=== PATIENT | female | born 1990 ===

== ENCOUNTER 2018-11-13 01:28 | Emergency (ER) | payer SELFPAY ==
[2018-11-13 01:37] VITALS: BP 101/60
--- NOTE | 2018-11-13 02:42 | Emergency Department Report ---
- General Chief complaint: Skin/Abscess/Foreign Body Stated complaint: BUG IN EAR Time Seen by Provider: 11/13/18 02:37 Source: patient Mode of arrival: Ambulatory Limitations: No Limitations - History of Present Illness Initial comments: 28-year-old -[place] female presents to the emergency room for concern of a bug in right ear. 4 hours. Patient states it is not painful but irritating. Patient denies any past medical history. MD complaint: foreign body Onset/Timin -: hour(s) Tetanus Up to Date: no Consistency: constant Associated symptoms: denies other symptoms Treatments Prior to Arrival: none - Related Data Allergies Allergy/AdvReac Type Severity Reaction Status Date / Time No Known Allergies Allergy Unverified 11/13/18 01:37 Abscess Boil HPI - HPI Chief Complaint: Skin/Abscess/Foreign Body Stated Complaint: BUG IN EAR Time Seen by Provider: 11/13/18 02:37 Allergies/Adverse Reactions: Allergies Allergy/AdvReac Type Severity Reaction Status Date / Time No Known Allergies Allergy Unverified 11/13/18 01:37 ED Review of Systems ROS: Stated complaint: BUG IN EAR Other details as noted in HPI Comment: All other systems reviewed and negative ED Past Medical Hx - Past Medical History Previous Medical History?: No - Surgical History Past Surgical History?: No - Social History Smoking Status: Former Smoker Substance Use Type: Alcohol, Marijuana ED Physical Exam - General Limitations: No Limitations General appearance: alert, in no apparent distress - Head Head exam: Present: atraumatic, normocephalic - Eye Eye exam: Present: normal appearance - ENT ENT exam: Present: mucous membranes moist, TM's normal bilaterally - Expanded ENT Exam Expanded TM/Canal exam: Foreign Body: Right TM (insect) - Neurological Exam Neurological exam: Present: alert, oriented X3, normal gait - Psychiatric Psychiatric exam: Present: normal affect, normal mood - Skin Skin exam: Present: warm, dry, intact, normal color. Absent: rash ED Course Vital Signs 11/13/18 01:36 Temperature 97.9 F Pulse Rate 69 Respiratory 18 Rate Blood Pressure 101/60 [Left] O2 Sat by Pulse 99 Oximetry - Reevaluation(s) Reevaluation #1: 11/13/18 03:12 Patient reports she feels much better after having the wax removal. ED Medical Decision Making - Medical Decision Making 28-year-old -[place] female presents to the emergency room for concern of a bug in right ear. 4 hours. Patient states it is not painful but irritatin g. Patient denies any past medical history. Critical care attestation.: If time is entered above; I have spent that time in minutes in the direct care of this critically ill patient, excluding procedure time. ED Disposition Clinical Impression: Ear pain, right Disposition: [id number] TO HOME OR SELFCARE Is pt being admited?: No Does the pt Need Aspirin: No Condition: Stable Instructions: Earache (ED) Additional Instructions: Tylenol and or Motrin as needed for pain control. Referrals: JUAREZ URBANO MD [Staff Physician] - 3-5 Days Forms: Work/School Release Form(ED)
[2018-11-13] MEDS ORDERED: NACL 0.9% 500 ML IR ONE (02:52)
[2018-11-13] MEDS ORDERED: HYDROGEN PEROXIDE ONE (02:53)
[2018-11-13] MEDS ORDERED: HYDROGEN PEROXIDE TP ONE (03:12)
[2018-11-13] MEDS ORDERED: NACL 0.9% IR ONE (03:12)
== END 2018-11-13 03:09 | disposition home or self-care (01) ==
LOC: ED 01:28
DX: H92.01 Otalgia, right ear (principal); Z87.891 Personal history of nicotine dependence; F12.90 Cannabis use, unspecified, uncomplicated
CPT/HCPCS: 99282; 99283